=== PATIENT | male | born 1985 | race Caucasian/White ===

== ENCOUNTER 2021-05-22 13:37 | Emergency (ER) | payer SELFPAY ==
[~2021-05-22] VITALS: Ht 172 cm; Wt 90.7 kg
[~2021-05-22 13:37] MED LIST: HYDR-4226 PO; PARO20TA57
[2021-05-22 15:22] LABS: BASOPHILS # (AUTO) 0.1 10^3/uL (0.0-0.1); BASOPHILS % (AUTO) 1 % (0-10); EOSINOPHILS # (AUTO) 0.1 10^3/uL (0.0-0.3); EOSINOPHILS % (AUTO) 2 % (0-10); HEMATOCRIT 45 % (40-54); HEMOGLOBIN 15.7 g/dL (13.3-17.7); LYMPHOCYTES # (AUTO) 1.8 10^3/uL (1.0-4.0); LYMPHOCYTES % (AUTO) 28 % (12-44); MEAN CORPUSCULAR HEMOGLOBIN 31 pg (25-34); MEAN CORPUSCULAR HGB CONC 35 g/dL (32-36); MEAN CORPUSCULAR VOLUME 88 fL (80-99); MEAN PLATELET VOLUME 10.4 fL (9.0-12.2); MONOCYTES # (AUTO) 0.5 10^3/uL (0.0-1.0); MONOCYTES % (AUTO) 8 % (0-12); NEUTROPHILS # (AUTO) 3.9 10^3/uL (1.8-7.8); NEUTROPHILS % (AUTO) 61 % (42-75); PLATELET COUNT 255 10^3/uL (130-400); WHITE BLOOD COUNT 6.3 10^3/uL (4.3-11.0)
[2021-05-22 15:32] LABS: BILIRUBIN,URINE NEGATIVE (NEGATIVE); CLARITY,URINE CLEAR; COLOR,URINE YELLOW; GLUCOSE, URINE (UA) NEGATIVE (NEGATIVE); KETONES,URINE NEGATIVE (NEGATIVE); LEUKOCYTE ESTERASE ,URINE NEGATIVE (NEGATIVE); NITRITE,URINE NEGATIVE (NEGATIVE); PROTEIN,URINE NEGATIVE (NEGATIVE)
[2021-05-22 15:36] LABS: ALBUMIN 4.5 GM/DL (3.2-4.5); CHLORIDE 109 MMOL/L (98-107); POTASSIUM 4.2 MMOL/L (3.6-5.0); SODIUM 141 MMOL/L (135-145)
[2021-05-22 15:37] LABS: CALCIUM 8.9 MG/DL (8.5-10.1)
[2021-05-22 15:38] LABS: GLUCOSE 89 MG/DL (70-105); TOTAL PROTEIN 7.9 GM/DL (6.4-8.2)
[2021-05-22 15:40] LABS: BILIRUBIN,TOTAL 0.4 MG/DL (0.1-1.0); CARBON DIOXIDE 22 MMOL/L (21-32)
[2021-05-22 15:42] LABS: ALKALINE PHOSPHATASE 71 U/L (40-136); CREATININE SERUM 0.94 MG/DL (0.60-1.30); GFR ESTIMATED > 60
[2021-05-22 15:43] LABS: AMPHETAMINE SCREEN, URINE NEGATIVE (NEGATIVE); BARBITURATE SCREEN URINE NEGATIVE (NEGATIVE); BENZODIAZEPINES SCREEN URINE NEGATIVE (NEGATIVE); CANNABINOID SCREEN, URINE POSITIVE (NEGATIVE); COCAINE SCREEN URINE NEGATIVE (NEGATIVE); METHADONE STAT NEGATIVE (NEGATIVE); METHAMPHETAMINE SCREEN URINE S NEGATIVE (NEGATIVE); OPIATE SCREEN URINE NEGATIVE (NEGATIVE); OXYCODONE STAT NEGATIVE (NEGATIVE); PROPOXYPHENE STAT NEGATIVE (NEGATIVE); TRICYCLIC ANTIDEPRESSANTS SCRE NEGATIVE (NEGATIVE)
[2021-05-22 15:43] LABS: BUN/CREATININE RATIO 14
[2021-05-22 15:45] LABS: ALANINE AMINOTRANSFERASE 32 U/L (0-55)
[2021-05-22 15:45] LABS: BACTERIA,URINE NEGATIVE /HPF; WBC,URINE RARE /HPF
[2021-05-22 15:48] LABS: ACETAMINOPHEN < 10 UG/ML (10-30)
--- NOTE | 2021-05-22 16:32 | ED Psychosocial ---
General Chief Complaint: Substance Abuse Stated Complaint: WITHDRAWALS FROM KLONOPIN/LUNESTA Nursing Triage Note: TO ROOM 06 WITH COMPLAINTS OF KLONIPIN WITHDRAW. STATES HE HASNT TAKEN IT SINCE HE OVERDOSED A WEEK OR SO AGO ON IT. History of Present Illness Date Seen by Provider: May 22, 2021 Time Seen by Provider: 14:00 Initial Comments 35-year-old male presents with his mother for Klonopin withdrawals. His mother interjects many answers to the questions. He reports that he has been taking this for several years for his anxiety and history of seizure disorder. He is also on Keppra. Approximately 10 days ago he took several Klonopin, to harm himself he was not evaluated at a healthcare facility. He also took several Lunesta, to harm himself. He no longer has any thoughts to harm himself or others. He is more concerned about withdrawals from the medications. He has had no seizure activity and is continuing to take his Keppra. He had an appointment with his primary care provider who is managed his medication for today however he began having panic attacks and presented here. He is no longer having a panic attack and is cooperative throughout the exam. He has chronic history of insomnia. He stresses that he is taken all SSRIs and all SNRIIs with no improvement in his anxiety. He is open to taking other benzodiazepines that he does not wanted to start klonopin again. He sees a therapist in [facility], regularly for his mental health. He is not employed but also not on disability. He lives with his mother. His mother and his therapists are aware of his suicide attempts. He did not tell his therapists that he stopped his klonopin and lunesta. Timing/Duration: intermittent Severity: moderate Associated Symptoms: anxiety, insomnia Allergies and Home Medications Allergies Coded Allergies: No Known Drug Allergies (Unverified , 03/11/10) Patient Home Medication List Home Medication List Reviewed: Yes Review of Systems Constitutional: no symptoms reported, see HPI Psychiatric/Neurological: See HPI, Anxiety, Emotional Problems All Other Systems Reviewed Negative Unless Noted: Yes Past Buvmbfv-Ipaxny-Kwrcbp Hx Past Med/Social Hx: Reviewed Nursing Past Med/Soc Hx Patient Social History Alcohol Beverage of Choice: Beer Type Used: Smokeless Tobacco 2nd Hand Smoke Exposure: Yes Recent Infectious Disease Expo: No Recent Hopitalizations: No Immunizations Up To Date Tetanus Booster (TDap): More than 5yrs Date of Influenza Vaccine: Nov 24, 2019 Past Medical History Surgeries: Yes (dental) Respiratory: No Cardiac: No Neurological: Yes Seizure Disorder Reproductive Disorders: No Sexually Transmitted Disease: No HIV/AIDS: No Gastrointestinal: No Musculoskeletal: No Endocrine: No Cancer: No Psychosocial: Yes ADD/ADHD, Anxiety, Suicide Attempts, Depression Integumentary: No Blood Disorders: No Adverse Reaction/Blood Tranf: No Family Medical History No Pertinent Family Hx Physical Exam Vital Signs - First Documented 05/22/21 13:50 Temp 36.0 Pulse 74 Resp 16 B/P (MAP) 129/78 (95) Pulse Ox 94 O2 Delivery Room Air Capillary Refill : Less Than 3 Seconds Height, Weight, BMI Height: 5'8" Weight: 180lbs. oz. 81.229381pm; 30.00 BMI Method:Stated General Appearance: WD/WN, no apparent distress Neck: non-tender, full range of motion, supple, normal inspection Respiratory: chest non-tender, lungs clear, normal breath sounds Cardiovascular: normal peripheral pulses, regular rate, rhythm Gastrointestinal: normal bowel sounds, non tender, soft Neurologic/Psychiatric: no motor/sensory deficits, alert, normal mood/affect, oriented x 3 Appearance/Memory: appropriate appearance, neat Behavior/Eye Contact: cooperative, good eye contact, normal speech Thoughts/Hallucinations: normal thought pattern, no apparent hallucination Skin: normal color, warm/dry Progress/Results/Core Measures Results/Orders Lab Results Laboratory Tests Test 05/22/21 15:10 05/22/21 15:18 Range/Units White Blood Count 6.3 4.3-11.0 10^3/uL Red Blood Count 5.09 4.30-5.52 10^6/uL Hemoglobin 15.7 13.3-17.7 g/dL Hematocrit 45 40-54 % Mean Corpuscular Volume 88 80-99 fL Mean Corpuscular Hemoglobin 31 25-34 pg Mean Corpuscular Hemoglobin Concent 35 32-36 g/dL Red Cell Distribution Width 12.5 10.0-14.5 % Platelet Count 255 130-400 10^3/uL Mean Platelet Volume 10.4 9.0-12.2 fL Immature Granulocyte % (Auto) 0 % Neutrophils (%) (Auto) 61 42-75 % Lymphocytes (%) (Auto) 28 12-44 % Monocytes (%) (Auto) 8 0-12 % Eosinophils (%) (Auto) 2 0-10 % Basophils (%) (Auto) 1 0-10 % Neutrophils # (Auto) 3.9 1.8-7.8 10^3/uL Lymphocytes # (Auto) 1.8 1.0-4.0 10^3/uL Monocytes # (Auto) 0.5 0.0-1.0 10^3/uL Eosinophils # (Auto) 0.1 0.0-0.3 10^3/uL Basophils # (Auto) 0.1 0.0-0.1 10^3/uL Immature Granulocyte # (Auto) 0.0 0.0-0.1 10^3/uL Sodium Level 141 135-145 MMOL/L Potassium Level 4.2 3.6-5.0 MMOL/L Chloride Level 109 H 98-107 MMOL/L Carbon Dioxide Level 22 21-32 MMOL/L Anion Gap 10 5-14 MMOL/L Blood Urea Nitrogen 13 7-18 MG/DL Creatinine 0.94 0.60-1.30 MG/DL Estimat Glomerular Filtration Rate > 60 BUN/Creatinine Ratio 14 Glucose Level 89 70-105 MG/DL Calcium Level 8.9 8.5-10.1 MG/DL Corrected Calcium 8.5 8.5-10.1 MG/DL Total Bilirubin 0.4 0.1-1.0 MG/DL Aspartate Amino Transf (AST/SGOT) 24 5-34 U/L Alanine Aminotransferase (ALT/SGPT) 32 0-55 U/L Alkaline Phosphatase 71 40-136 U/L Troponin I < 0.028 <0.028 NG/ML Total Protein 7.9 6.4-8.2 GM/DL Albumin 4.5 3.2-4.5 GM/DL TSH [place] Testing 1.25 0.35-4.94 UIU/ML Acetaminophen Level < 10 L 10-30 UG/ML Serum Alcohol < 10 <10 MG/DL Urine Color YELLOW Urine Clarity CLEAR Urine pH 7.0 5-9 Urine Specific [place] 1.020 1.016-1.022 Urine Protein NEGATIVE NEGATIVE Urine Glucose (UA) NEGATIVE NEGATIVE Urine Ketones NEGATIVE NEGATIVE Urine Nitrite NEGATIVE NEGATIVE Urine Bilirubin NEGATIVE NEGATIVE Urine Urobilinogen 0.2 < = 1.0 MG/DL Urine Leukocyte Esterase NEGATIVE NEGATIVE Urine RBC (Auto) NEGATIVE NEGATIVE Urine RBC NONE /HPF Urine WBC RARE /HPF Urine Crystals NONE /LPF Urine Bacteria NEGATIVE /HPF Urine Casts NONE /LPF Urine Mucus NEGATIVE /LPF Urine Culture Indicated NO Urine Opiates Screen NEGATIVE NEGATIVE Urine Oxycodone Screen NEGATIVE NEGATIVE Urine Methadone Screen NEGATIVE NEGATIVE Urine Propoxyphene Screen NEGATIVE NEGATIVE Urine Barbiturates Screen NEGATIVE NEGATIVE Ur Tricyclic Antidepressants Screen NEGATIVE NEGATIVE Urine Phencyclidine Screen NEGATIVE NEGATIVE Urine Amphetamines Screen NEGATIVE NEGATIVE Urine Methamphetamines Screen NEGATIVE NEGATIVE Urine Benzodiazepines Screen NEGATIVE NEGATIVE Urine Cocaine Screen NEGATIVE NEGATIVE Urine Cannabinoids Screen POSITIVE H NEGATIVE My Orders Orders - TYLOR,MICHELLE ENGINEER THIRD ASSISTANT Ua Culture If Indicated (05/22/21 15:03) Cbc With Automated Diff (05/22/21 15:03) Comprehensive Metabolic Panel (05/22/21 15:03) Alcohol (05/22/21 15:03) Drug Screen Stat (Urine) (05/22/21 15:03) Acetaminophen (05/22/21 15:03) Ekg Tracing (05/22/21 15:03) Ed Iv/Invasive Line Start (05/22/21 15:03) Thyroid Analyzer (05/22/21 15:03) Monitor-Rhythm Ecg Trace Only (05/22/21 15:03) Ed Iv/Invasive Line Start (05/22/21 15:03) Troponin I (05/22/21 15:49) Vital Signs/I&O 05/22/21 05/22/21 13:50 17:00 Temp 36.0 Pulse 74 64 Resp 16 16 B/P (MAP) 129/78 (95) 140/108 Pulse Ox 94 98 O2 Delivery Room Air Room Air Blood Pressure Mean: 95 Progress Progress Note : Time: 14:00 Progress Note Patient seen and evaluated, will obtain labs, and EKG. Patient denies needs for any medications at this time. 1500 spoke with Kaycee Gamez APRN and PCP for the patient. She was unaware that he had stopped his Klonopin without titrating down on it. We discussed the withdrawal issues at this point and it is limited, but can be worse in the next 4-5 days. She will see him on 05/24/21 and start appropriate medications, if needed. She will also follow up with his therapists. 1600 spoke with the patient and his mother and talked about issues related to stopping the Klonopin. At this point there are no medications that would be recommended. Discussed the need to follow-up with his therapist and keep his appointment with his PCP in 2 days. Discharge instructions and return precautions discussed with the patient and his mother. They were both comfortable with this plan. All questions answered. Initial ECG Impression Date: May 22, 2021 Initial ECG Impression Time: 15:12 Initial ECG Rate: 64 Initial ECG Rhythm: Normal Sinus Initial ECG Intervals: Normal Initial ECG Intervals [place] 179, QRSD 90, QT 410, QTc 423. [place] P 46, QRS 43, T 31. Initial ECG Impression: Normal Initial ECG Comparisson: No Previous ECG Available Departure Impression Primary Impression: Prescription drug abuse Additional Impressions: Anxiety Benzodiazepine withdrawal Qualified Codes: F13.230 - Sedative, hypnotic or anxiolytic dependence with withdrawal, uncomplicated Disposition: 01 HOME, SELF-CARE Condition: Improved Departure-Patient Inst. Decision time for Depature: 16:15 Referrals: NO,LOCAL PHYSICIAN (PCP) Primary Care Physician NATHANAEL GAMEZ APRN (Family) Primary Care Physician Patient Instructions: ALCOHOL AND SUBSTANCE ABUSE, Drug Withdrawal (DC), Prescription Drug Misuse Add. Discharge Instructions: Increase water intake, 16 ounces every 2 hours while awake. You have an appointment made with Kaycee Gamez for 315 on May 24, she will address your medications and side effects. Take Melatonin at night. Use distractive activities to avoid anxiety. Continue to take your Keppra as prescribed. Return to the emergency department for new, urgent healthcare needs. All discharge instructions reviewed with patient and/or family. Voiced understanding. MICHELLE SNIDER May 22, 2021 16:32
[2021-05-22 17:00] VITALS: BP 140/108
== END 2021-05-22 17:01 | disposition home or self-care (01) ==
LOC: EDUNIT# 13:37 → ER 13:39
DX: F19.10 Other psychoactive substance abuse, uncomplicated (principal); F41.9 Anxiety disorder, unspecified; F13.239 Sedative, hypnotic or anxiolytic dependence with withdrawal, unspecified; Z77.22 Contact with and (suspected) exposure to environmental tobacco smoke (acute) (chronic)
CPT/HCPCS: 80053; 80306; 81000; 84443; 84484; 85025; 93005; 93041; 99284; G0480 ×2; 36415; 80320; 80329